=== PATIENT | female | born 1945 | race Caucasian/White ===

== ENCOUNTER 2017-03-09 16:05 | Emergency (ER) | payer OTHER ==
[~2017-03-09] VITALS: Ht 160 cm; Wt 62.0 kg
[~2017-03-09 16:05] MED LIST: EZET1TAB10 PO; OMEPRAZOLE 20 MG; SULF-182 PO; [UNRECOGNIZED DRUG - CODE] PO
[2017-03-09 16:09] VITALS: Ht 160 cm; Wt 62.0 kg
[2017-03-09] MEDS ORDERED: ONDANSETRON 4 MG INJ IV STA (19:03)
[2017-03-09] MEDS ORDERED: FAMOTIDINE 20 MG INJ IV STA (19:03)
[2017-03-09] MEDS ORDERED: morphine 2 MG INJ IV STA (19:03)
[2017-03-09] MEDS ORDERED: SOD CHLORIDE 0.9% 500 ML IV STA (19:03)
[2017-03-09 19:20] LABS: BASOPHILS % 0.3 % (0.0-2.0); EOSINOPHILS % 0.2 % (0.0-7.0); HEMATOCRIT 39.5 % (37.0-47.0); HEMOGLOBIN 13.1 g/dl (12.0-16.0); LYMPHOCYTES # 1.3 10^3/ul (0.8-2.9); LYMPHOCYTES % 19.3 % (15.0-51.0); MEAN CORPUSCULAR HEMOGLOBIN 31.3 pg (29.0-33.0); MEAN CORPUSCULAR HGB CONC 33.2 g/dl (32.0-37.0); MEAN CORPUSCULAR VOLUME 94.3 fl (82.0-101.0); MEAN PLATELET VOLUME 11.3 fl (7.4-10.4); MONOCYTE # 0.5 10^3/ul (0.3-0.9); MONOCYTES % 7.7 % (0.0-11.0); NEUTROPHILS % 72.2 % (39.0-77.0); PLATELET COUNT 200 10^3/UL (140-415); RED BLOOD COUNT 4.19 10^6/ul (4.20-5.40); RED CELL DISTRIBUTION WIDTH 12.5 % (11.5-14.5); WHITE BLOOD COUNT 6.6 10^3/ul (4.8-10.8)
[2017-03-09 19:26] LABS: INR 0.97; PARTIAL THROMBOPLASTIN TIME 28.8 Sec (25.0-35.0); PROTIME 12.9 Sec (12.2-14.2)
[2017-03-09 19:29] LABS: ALANINE AMINOTRANSFERASE 28 IU/L (13-69); ALBUMIN 4.9 g/dl (3.3-4.9); ALBUMIN/GLOBULIN RATIO 1.32; ALKALINE PHOSPHATASE 80 IU/L (42-121); ANION GAP 16 (8-16); ASPARTATE AMINO TRANSFERASE 22 IU/L (15-46); BILIRUBIN,INDIRECT 0.5 mg/dl (0-1.1); BILIRUBIN,TOTAL 0.5 mg/dl (0.2-1.3); BLOOD UREA NITROGEN 13 mg/dl (7-20); CALCIUM 9.4 mg/dl (8.4-10.2); CARBON DIOXIDE 27 mmol/L (21-31); CHLORIDE 102 mmol/L (97-110); CREATININE 0.67 mg/dl (0.44-1.00); GLUCOSE 109 mg/dl (70-220); POTASSIUM 4.2 mmol/L (3.5-5.1); SODIUM 141 mmol/L (135-144); TOTAL PROTEIN 8.6 g/dl (6.1-8.1)
[2017-03-09 19:33] LABS: ADD UMIC YES; UR ASCORBIC ACID NEGATIVE (NEGATIVE); UR BACTERIA FEW /HPF (NONE SEEN); UR BILIRUBIN (Dip) NEGATIVE (NEGATIVE); UR BLOOD (Dip) 2+ mg/dL (NEGATIVE); UR CLARITY CLEAR (CLEAR); UR COLOR STRAW (YELLOW); UR GLUCOSE (Dip) NEGATIVE (NEGATIVE); UR KETONES (Dip) NEGATIVE (NEGATIVE); UR LEUKOCYTE ESTERASE (Dip) NEGATIVE Leu/ul (NEGATIVE); UR NITRITE (Dip) NEGATIVE (NEGATIVE); UR RBC 7 /HPF (0-5); UR SPECIFIC GRAVITY (Dip) 1.008 (1.003-1.030); UR TOTAL PROTEIN (Dip) NEGATIVE (NEGATIVE); UR UROBILINOGEN (Dip) NEGATIVE (NEGATIVE)
[2017-03-09 19:42] LABS: TROPONIN-I < 0.012 ng/ml (0.00-0.12)
--- NOTE | 2017-03-09 19:51 | RADRPT ---
PROCEDURE: CT of the abdomen and pelvis without contrast CLINICAL INDICATION: Left lower quadrant pain. TECHNIQUE: Spiral CT images through the abdomen and pelvis without the use of oral and without the use of intravenous contrast. The administered radiation dose is CTDI 7.71 and DLP 445.82. One or m ore of the following dose reduction techniques were used: automated exposure control, adjustment of the mA and/or kV according to patient size, or use of iterative reconstruction technique. COMPARISON: None FINDINGS: The study is limited by lack of intravenous contrast. Lower thorax: Slight dependent atalectasis of the lung bases is seen.. Nonspecific ground-glass opac ity of the lung bases. Pulmonary edema cannot be excluded. Mild cardiomegaly. No pleural or pericard ial effusion. Liver: The liver is unremarkable in appearance. Biliary: The gallbladder is unremarkable.. No biliary ductal dilatation is seen. Pancreas: Unremarkable. No focal mass or inflammatory process. Spleen: The spleen is unremarkable in appearance Adrenal glands: Tiny incidental right adrenal nodule, probable adenoma. Unremarkable left adrenal.. Genitourinary: Unremarkable right kidney. Slightly ill-defined 1 cm probable cortical cyst in the mi d left kidney and 9 mm probable cyst in the upper left kidney.. The urinary bladder is slightly dist ended.. Mild dilatation of the left ureter adjacent to the area of diverticulitis. Gastrointestinal Tract: There is inflammatory change of the distal descending colon which is centere d about a diverticulum. Adjacent fat stranding is seen. No free air or abscess.. The appendix is un remarkable in appearance. Small hiatal hernia. Lymph nodes: No visible pathologic lymphadenopathy.. Vascular structures: Minimal atherosclerotic change of the aorta.. Peritoneal cavity: Fat stranding adjacent to the descending colon diverticulitis. Reproductive Organs: Surgically absent.. Musculoskeletal: There is mild degenerative change of the spine. Probable mild osteitis pubis. IMPRESSION: Descending colon diverticulitis. No evidence for free air or abscess.. RPTAT: [facility] Physician Oumou Date Time Electronically viewed and signed by Physician Oumou on 03/09/2017 19:50 LE/
[2017-03-09] MEDS ORDERED: KETOROLAC 15 MG INJ IV STA (19:55)
[2017-03-09] MEDS ORDERED: CIPROFLOXACIN 500 MG TAB PO ONE (20:00)
[2017-03-09] MEDS ORDERED: metroNIDAZOLE 500 MG TAB PO ONE (20:00)
--- NOTE | 2017-03-09 20:00 | ERD ---
ER Documentation Chief Complaint Date/Time DATE: 03/09/17 TIME: 19:57 Chief Complaint left ap x 3 days with diarrhea; pt sent from clinic HPI This is a [id number] presents to the emergency room for evaluation of abdominal pain. The patient states she has had abdominal pain for 3 days with one episode of diarrhea which was described as nonbloody. The patient localizes the pain to the left lower portion of the abdomen with no radiation. She denies any aggravating or relieving factors for her symptoms. She presents to the emergency room for further evaluation after being referred from her health clinic.She denies any chest pain or fevers or vomiting associated with her symptoms at this time ROS All systems reviewed and are negative except as per history of present illness. Medications Home Meds Reported Medications Griseofulvin Ultramicrosize (Griseofulvin Ultramicrosize) 125 Mg Tablet, 125 MG PO DAILY 11/11/12 [Omeprazole Dr 20MG] No Conflict Check, DAILY 11/11/12 Sulfamethoxazole-Trimethoprim (Sulfamethoxazole-Trimethoprim DS) 1 Tab Tablet, 1 TAB PO BID 11/11/12 Ezetimibe-Simvastatin (Vytorin) 1 Tab Tablet, 1 TAB PO DAILY 11/11/12 Allergies Allergies: Coded Allergies: Penicillins (Verified Allergy, Intermediate, 11/11/12) PMhx/Soc History of Surgery: Yes (RT.EYE 01/06, LT. BREAST) Anesthesia Reaction: No Hx Neurological Disorder: No Hx Respiratory Disorders: No Hx Cardiac Disorders: No Hx Psychiatric Problems: No Hx Miscellaneous Medical Probl: No Hx Alcohol Use: No Hx Substance Use: No Hx Tobacco Use: No Smoking Status: Never smoker Physical Exam Vitals Vital Signs Date Time Temp Pulse Resp B/P Pulse Ox O2 Delivery O2 Flow Rate FiO2 03/09/17 16:09 100.0 80 18 163/74 97 Physical Exam INITIAL VITAL SIGNS: Reviewed by me GENERAL: The patient is well developed and appropriate for usual state of health in no apparent distress HEENT: Pupils equal, round, and reactive to light. EOMI. There is no scleral icterus. NECK: C-spine is soft and supple, there is no meningismus. There is no cervical lymphadenopathy. LUNGS: Clear to auscultation bilaterally. There are no rales, wheezes or rhonchi. HEART: Regular rate and rhythm, no murmurs, clicks, rubs or gallops. ABDOMEN: Tender to palpation in the left lower quadrant, otherwise soft, non- tender, non-distended. There are bowel sounds in all four quadrants. No rebound or guarding. EXTREMITIES: There is no peripheral cyanosis or edema. No focal swelling or erythema. NEUROLOGICAL: The patient moves all four extremities with 5/5 strength. Cranial nerves II - XII are intact. Normal gait. Alert and oriented SKIN: There is no apparent rash or petechiae. HEME/LYMPHATIC: There is no evidence of excessive bruising or lymphedema. PSYCHIATRIC: The patient does not appear anxious or depressed. Result Diagram: 03/09/17184903/09/171849 Results 24 hrs Laboratory Tests Test 03/09/17 18:50 White Blood Count 6.610^3/ul Red Blood Count 4.1910^6/ul Hemoglobin 13.1g/dl Hematocrit 39.5% Mean Corpuscular Volume 94.3fl Mean Corpuscular Hemoglobin 31.3pg Mean Corpuscular Hemoglobin Concent 33.2g/dl Red Cell Distribution Width 12.5% Platelet Count 67537^3/UL Mean Platelet Volume 11.3fl Neutrophils % 72.2% Lymphocytes % 19.3% Monocytes % 7.7% Eosinophils % 0.2% Basophils % 0.3% Nucleated Red Blood Cells % 0.0/100WBC Neutrophils # (Manual) 4.810^3/ul Lymphocytes # 1.310^3/ul Monocytes # 0.510^3/ul Eosinophils # 0.010^3/ul Basophils # 0.010^3/ul Nucleated Red Blood Cells # 0.010^3/ul Prothrombin Time 12.9Sec Prothrombin Time Ratio 1.0 INR International Normalized Ratio 0.97 Activated Partial Thromboplast Time 28.8Sec Urine Color STRAW Urine Clarity CLEAR Urine pH 8.0 Urine Specific [place] 1.008 Urine Ketones NEGATIVEmg/dL Urine Nitrite NEGATIVEmg/dL Urine Bilirubin NEGATIVEmg/dL Urine Urobilinogen NEGATIVEmg/dL Urine Leukocyte Esterase NEGATIVELeu/ul Urine Microscopic RBC 7/HPF Urine Microscopic WBC 0/HPF Urine Bacteria FEW/HPF Urine Hemoglobin 2+mg/dL Urine Glucose NEGATIVEmg/dL Urine Total Protein NEGATIVEmg/dl Sodium Level 141mmol/L Potassium Level 4.2mmol/L Chloride Level 102mmol/L Carbon Dioxide Level 27mmol/L Anion Gap 16 Blood Urea Nitrogen 13mg/dl Creatinine 0.67mg/dl Glucose Level 109mg/dl Calcium Level 9.4mg/dl Total Bilirubin 0.5mg/dl Direct Bilirubin 0.00mg/dl Indirect Bilirubin 0.5mg/dl Aspartate Amino Transf (AST/SGOT) 22IU/L Alanine Aminotransferase (ALT/SGPT) 28IU/L Alkaline Phosphatase 80IU/L Troponin I < 0.012ng/ml Total Protein 8.6g/dl Albumin 4.9g/dl Globulin 3.70g/dl Albumin/Globulin Ratio 1.32 Lipase 123U/L Current Medications Medications (Trade) Dose Ordered Sig/Florin Route PRN Reason Start Time Stop Time Status Last Admin Dose Admin Sodium Chloride (NS) 500 ml @ 500 mls/hr Q1H STAT IV 03/09/17 19:03 03/09/17 20:02 03/09/17 19:56 Morphine Sulfate (morphine) 2 mg ONCE STAT IV 03/09/17 19:03 03/09/17 19:05 DC 03/09/17 19:56 Ondansetron HCl (Zofran Inj) 4 mg ONCE STAT IV 03/09/17 19:03 03/09/17 19:05 DC 03/09/17 19:56 Famotidine (Pepcid Iv) 20 mg ONCE STAT IV 03/09/17 19:03 03/09/17 19:05 DC 03/09/17 19:56 Ketorolac Tromethamine (Toradol) 15 mg ONCE STAT IV 03/09/17 19:55 03/09/17 19:57 DC Ciprofloxacin (Cipro) 500 mg ONCE ONCE PO 03/09/17 20:00 03/09/17 20:01 Metronidazole (Flagyl) 500 mg ONCE ONCE PO 03/09/17 20:00 03/09/17 20:01 Procedures/MDM CT abdomen pelvis without IV contrast: Descending diverticulitis This 71-year-old female presents to the ER for evaluation of abdominal pain. On my examination she was hemodynamically stable, she was afebrile however she did have tenderness to palpation in the left lower quadrant. I did obtain lab work including a CT of the abdomen and pelvis without contrast. CT the abdomen and pelvis does reveal descending diverticulitis. There is no sign of perforation. This patient has no fever, no leukocytosis. The patient was given morphine and Toradol for pain control and was given p.o. ciprofloxacin and Flagyl. She is tolerating p.o. meds at this time and will be discharged home with a prescription for Cipro and Flagyl for diverticulitis. Departure Diagnosis: Primary Impression: Acute diverticulitis Additional Impression: Abdominal pain PARISA CORONA DO Mar 09, 2017 20:00
[2017-03-09] MEDS ORDERED: METR500T PO (20:03)
[2017-03-09] MEDS ORDERED: CIPR500T4 PO (20:03)
[2017-03-09] MEDS ORDERED: TRAM50TA2 PO (20:03)
[2017-03-09 20:32] VITALS: BP 157/78; PULSE 78; RESP 18; TEMP 99.6
== END 2017-03-09 20:34 | disposition home or self-care (01) ==
LOC: E/R 16:05
DX: K57.92 Diverticulitis of intestine, part unspecified, without perforation or abscess without bleeding (principal)
CPT/HCPCS: 36415; 74176; 80053; 81001; 83690; 84484; 85025; 85610; 85730; 93005; 96374; 96375; 99285; J1885; J2270; J2405; J7040